=== PATIENT | male | born 1965 | race Caucasian/White ===

== ENCOUNTER 2024-04-05 10:43 | Emergency (ER) | payer OTHER, SELFPAY ==
[2024-04-05 11:23] LABS: INR-International Normal Ratio 1.2; Prothrombin Time 15.2 sec (12.0-14.7)
[2024-04-05 11:24] LABS: PTT 40.3 sec (22.9-36.1)
[2024-04-05 11:29] LABS: ALT (SGPT) 27 U/L (8-55); AST (SGOT) 63 U/L (5-34); Albumin 3.2 g/dL (3.5-5.0); Alkaline Phosphatase 139 U/L (40-110); Anion Gap 16 mmol/L (10-20); BUN (Urea Nitrogen) 5 mg/dL (8.4-25.7); Bilirubin, Total 0.6 mg/dL (0.2-1.2); Calc. Creatinine Clearance 0 mL/min (70-130); Calcium 8.8 mg/dL (7.8-10.44); Carbon Dioxide 24 mmol/L (22-29); Chloride 101 mmol/L (98-107); Estimated GFR 106; Globulin 4.4 g/dL (2.4-3.5); Glucose 108 mg/dL (70-105); Potassium 3.1 mmol/L (3.5-5.1); Protein, Total 7.6 g/dL (6.0-8.3); Sodium 138 mmol/L (136-145)
[2024-04-05] MEDS ORDERED: Metoprolol Tartrate 5 MG (5 mL) VIAL ONE (11:36)
[2024-04-05 11:46] LABS: #Basophils 0.1 thou/uL (0.0-0.2); #Eosinophils 0.3 thou/uL (0.0-0.7); #Lymphocytes 1.8 thou/uL (1.20-3.40); #Monocytes 0.7 thou/uL (0.11-0.59); %Basophils 0.8 % (0.0-1.0); %Eosinophils 4.1 % (0.0-10.0); %Lymphocytes 22.6 % (21.0-51.0); %Monocytes 8.8 % (0.0-10.0); %Neutrophils 63.8 % (42.0-75.0); Hematocrit 36.2 % (42.0-52.0); Hemoglobin 10.9 g/dL (14.0-18.0); Mean Corpuscular HGB CONC 30.1 g/dL (32.0-36.0); Mean Corpuscular Hemoglobin 24.3 pg (27.0-31.0); Mean Corpuscular Volume 80.6 fl (78.0-98.0); Mean Platelet Volume 7.7 fL (7.4-10.4); Platelet Count 293 10x3/uL (130-400); Red Blood Cell (RBC) Count 4.49 mill/uL (4.70-6.10); White Blood Cell (WBC) Count 7.8 10x3/uL (4.8-10.8)
[2024-04-05 11:49] LABS: Anisocytosis SLIGHT = 6-15 cells (100X) (0-5/hpf); Hypochromia SLIGHT = 6-15 cells (100X) (0-5/hpf); MDiff Complete? YES; Platelet Adequacy Comment Appears Adequate
[2024-04-05 12:37] LABS: Blood, Urine Negative (Negative); Clarity Slightly Cloudy (Clear); Glucose, Urine (Dipstick) Negative (Negative); Ketone, Urine Trace mg/dL (Negative); Leukocyte Negative (Negative); Nitrite Negative (Negative); Protein, Urine (Dipstick) 100 mg/dL (Neg-Trace); Specific Gravity, Urine 1.025 (1.005-1.030)
[2024-04-05 12:55] LABS: Bilirubin Unable to Interpret (Negative)
[2024-04-05 12:56] LABS: Bacteria/HPF Rare-Few HPF (None Seen); CAUTI Indications for Culture Dysuria,urgency,freq; RBC/HPF None Seen HPF (0-3); Squamous Epithelial 0-3 HPF (0-3); WBC/HPF 0-3 HPF (0-3)
[2024-04-05 12:58] LABS: Urine Culture Reflex No No
== END 2024-04-05 13:53 | disposition short-term general hospital (02) ==
LOC: NAV ERS 10:43
DX: R18.8 Other ascites (principal); I10 Essential (primary) hypertension; F17.210 Nicotine dependence, cigarettes, uncomplicated
CPT/HCPCS: 71045; 80053; 81001; 83880; 85025; 85610; 85730; 93005; 96374